=== PATIENT | female | born 1990 | race American Indian/Alaskan Native ===

== ENCOUNTER 2018-07-02 20:20 | Emergency (ER) | payer MEDICAID ==
[2018-07-02 21:30] LABS: Basophils % (Auto) 0.3 % (0.0-1.8); Eosinophils # (Auto) 0.1 K/mm3 (0.0-0.4); Hematocrit 36.9 % (30.3-42.9); Hemoglobin 12.5 gm/dl (10.1-14.3); Lymphocytes # (Auto) 1.5 K/mm3 (1.2-5.4); Lymphocytes % (Auto) 15.8 % (13.4-35.0); Mean Corpuscular HGB Conc 34 % (30-34); Mean Corpuscular Volume 97 fl (79-97); Monocytes # (Auto) 0.9 K/mm3 (0.0-0.8); Monocytes % (Auto) 9.7 % (0.0-7.3); Platelet Count 401 K/mm3 (140-440); Red Blood Count 3.81 M/mm3 (3.65-5.03)
[2018-07-02 21:32] LABS: Bilirubin,Urine NEG (Negative); Blood,Urine NEG (Negative); Color,Urine Yellow (Yellow); Mucus,Urine FEW /HPF; Protein,Urine <15 mg/dL mg/dL (Negative); Urobilinogen,Urine < 2.0 mg/dL (<2.0); WBC,Urine < 1.0 /HPF (0.0-6.0)
[2018-07-02] MEDS ORDERED: ZOFRAN ODT PO ONE (23:01)
[2018-07-02] MEDS ORDERED: TYLENOL PO ONE (23:01)
--- NOTE | 2018-07-02 23:06 | Ultrasound Report ---
FINAL REPORT EXAM: US OB >= 14 WEEKS FETUS HISTORY: abddominal pain TECHNIQUE: Real-time sonography was performed of the gravid uterus and images are submitted for inte rpretation. PRIORS: None. FINDINGS: There is a large posterior uterine fibroid measuring 6.4 x 6.5 x 8.3 cm. There is a fundal fibroid me asuring 8.1 x 7.9 x 7.6 cm. There is a single fetus in the uterus in a cephalic presentation. Detailed anatomic survey was not pe rformed The placenta is posterior and the os is clear. There is a normal amount of amniotic fluid. The cervix is long and closed measuring 3.6 cm. The heart is beating at a rate of 152 beats per minute. Biometric measurements give an estimated gestational age of 17 weeks 4 days IMPRESSION: 1. Single, live intrauterine gestation, estimated gestational age 17 weeks 4 days for an estimated da te of confinement of 12/06/2018. Detailed anatomic survey was not performed at this time. 2. Two large uterine fibroids
--- NOTE | 2018-07-02 23:07 | Emergency Department Report ---
ED Abdominal Pain HPI - General Chief Complaint: Abdominal Pain Stated Complaint: STOMACH PELVIC PAIN 17 WEEKS Source: patient Mode of arrival: Ambulatory Limitations: No Limitations - History of Present Illness Initial Comments: pt is a 27 by/o aaf G1, P0, A0 who presents for abd pain x 1 week described as cramping no fever no chills no vaginal bleeding no vaginal discharge does endorse urinary frequency urgency dysuria no hematuria no vomting endorses nausea pt has OBGYN at [facility] , has follow up apt in 2 weeks pt is tolerating po intak states decreased appetite. MD Complaint: abdominal pain Onset/Timin -: days(s) Location: suprapubic Radiation: none Migration to: no migration Severity: mild Severity scale (0 -10): 3 Quality: cramping Consistency: intermittent Improves With: nothing Worsens With: other (voiding ) Associated Symptoms: nausea, dysuria. denies: vomiting, diarrhea, fever, chills, constipation, hematemesis, hematochezia, melena, hematuria, anorexia, syncope - Related Data LMP Date: 03/06/18 Previous Rx's Medication Instructions Recorded Last Taken Type Amoxicillin/K Clav Tab [Augmentin 1 tab PO Q12HR #14 tab 05/27/16 Unknown Rx 875 mg] Ibuprofen [Motrin] 400 mg PO Q8H PRN #15 tablet 05/27/16 Unknown Rx Acetaminophen [Tylenol] 650 mg PO QID #30 capsule 07/02/18 Unknown Rx Cephalexin [Keflex] 500 mg PO TID #30 capsule 07/02/18 Unknown Rx Allergies Allergy/AdvReac Type Severity Reaction Status Date / Time egg Allergy Intermediate Itching Verified 05/27/16 05:43 ED Review of Systems ROS: Stated complaint: STOMACH PELVIC PAIN 17 WEEKS Other details as noted in HPI Constitutional: denies: chills, fever Eyes: denies: eye pain, eye discharge, vision change ENT: denies: ear pain, throat pain Respiratory: denies: cough, shortness of breath, wheezing Cardiovascular: denies: chest pain, palpitations Endocrine: no symptoms reported Gastrointestinal: nausea. denies: abdominal pain, diarrhea, constipation, hematemesis Genitourinary: urgency, dysuria. denies: hematuria, discharge Musculoskeletal: denies: back pain, joint swelling, arthralgia Skin: denies: rash, lesions Neurological: denies: headache, weakness, paresthesias Psychiatric: denies: anxiety, depression Hematological/Lymphatic: denies: easy bleeding, easy bruising ED Past Medical Hx - Past Medical History Hx Asthma: Yes - Surgical History Past Surgical History?: No - Social History Smoking Status: Never Smoker Substance Use Type: None - Medications Home Medications: Home Medications Medication Instructions Recorded Confirmed Last Taken Type Amoxicillin/K Clav Tab [Augmentin 1 tab PO Q12HR #14 tab 05/27/16 Unknown Rx 875 mg] Ibuprofen [Motrin] 400 mg PO Q8H PRN #15 tablet 05/27/16 Unknown Rx Acetaminophen [Tylenol] 650 mg PO QID #30 capsule 07/02/18 Unknown Rx Cephalexin [Keflex] 500 mg PO TID #30 capsule 07/02/18 Unknown Rx ED Physical Exam - General Limitations: No Limitations General appearance: alert, in no apparent distress - Head Head exam: Present: atraumatic, normocephalic - Eye Eye exam: Present: normal appearance - ENT ENT exam: Present: normal orophraynx, mucous membranes moist - Neck Neck exam: Present: normal inspection, full ROM. Absent: tenderness, lymphadenopathy, thyromegaly - Respiratory Respiratory exam: Present: normal lung sounds bilaterally. Absent: respiratory distress, wheezes, stridor, chest wall tenderness - Cardiovascular Cardiovascular Exam: Present: regular rate, normal rhythm. Absent: systolic murmur, diastolic murmur, rubs, gallop - GI/Abdominal GI/Abdominal exam: Present: soft, normal bowel sounds. Absent: distended, tenderness, guarding, rebound, rigid, bruit, hernia - Rectal Rectal exam: Present: deferred - External exam: Present: other (deferred per patient ) - Extremities Exam Extremities exam: Present: normal inspection - Back Exam Back exam: Present: normal inspection, full ROM. Absent: tenderness, CVA tenderness (R), CVA tenderness (L), muscle spasm, rash noted - Neurological Exam Neurological exam: Present: alert, oriented X3, CN II-XII intact, normal gait - Psychiatric Psychiatric exam: Present: normal affect, normal mood - Skin Skin exam: Present: warm, dry, intact, normal color. Absent: rash ED Course Vital Signs 07/02/18 20:55 Temperature 99.1 F Pulse Rate 107 H Respiratory 18 Rate Blood Pressure 123/84 O2 Sat by Pulse 100 Oximetry ED Medical Decision Making - Lab Data Result diagrams: 07/02/18 21:03 - Radiology Data Radiology results: report reviewed, image reviewed Single IUP at 17 weeks 4 days bilaterally intrauterine fibroids - Medical Decision Making Single IUP at 17 weeks 4 days bilaterally intrauterine fibroids uA normal CBC normal plan will tx dyruia with keflex, tylenol,follow up with pcp in 2-3 days pt verbalized agreement and understanding of discharge plan. Critical care attestation.: If time is entered above; I have spent that time in minutes in the direct care of this critically ill patient, excluding procedure time. ED Disposition Clinical Impression: Abdominal pain during in second trimester, Dysuria Disposition: TO HOME OR SELFCARE Is pt being admited?: No Does the pt Need Aspirin: No Condition: Stable Instructions: Dysuria (ED), Abdominal Pain in (ED) Prescriptions: Acetaminophen [Tylenol] 650 mg PO QID #30 capsule Cephalexin [Keflex] 500 mg PO TID #30 capsule Referrals: JULES PATEL [Staff Physician] - 3-5 Days Forms: Work/School Release Form(ED) Time of Disposition: 23:37
[2018-07-02 23:54] VITALS: BP 122/79
== END 2018-07-03 00:24 | disposition home or self-care (01) ==
LOC: ED 20:20
DX: O26.892 Other specified pregnancy related conditions, second trimester (principal); R10.2 Pelvic and perineal pain; R30.0 Dysuria; R35.0 Frequency of micturition; R31.9 Hematuria, unspecified; R11.0 Nausea; O99.512 Diseases of the respiratory system complicating pregnancy, second trimester; Z91.012 Allergy to eggs; Z3A.17 17 weeks gestation of pregnancy
CPT/HCPCS: 36415; 76805; 81001; 84702; 85025; Q0162